=== PATIENT | male | born 1970 | race Caucasian/White ===

== ENCOUNTER 2018-06-08 18:40 | Emergency (ER) | payer OTHER ==
[~2018-06-08] VITALS: Ht 180.3 cm; Wt 77.1 kg
[~2018-06-08 18:40] MED LIST: ZYNCOF 20-400120 ML PO
== END 2018-06-08 22:29 | disposition home or self-care (01) ==
LOC: ER 18:40
DX: B34.9 Viral infection, unspecified (principal); E11.65 Type 2 diabetes mellitus with hyperglycemia